=== PATIENT | female | born 1985 | race Caucasian/White ===

== ENCOUNTER 2021-07-17 11:12 | Emergency (ER) | payer OTHER ==
[~2021-07-17] VITALS: Ht 160 cm; Wt 63.5 kg
== END 2021-07-17 12:51 | disposition home or self-care (01) ==
LOC: ER 11:12
DX: U07.1 COVID-19 (principal)

== ENCOUNTER 2024-04-10 15:28 | Emergency (ER) | payer OTHER ==
[~2024-04-10] VITALS: Ht 160 cm; Wt 68.9 kg
[2024-04-10] MEDS ORDERED: ONDANSETRON HCL 2 MG/ML VIAL IV ONE (18:00)
[2024-04-10] MEDS ORDERED: 0.9 % SODIUM CHLORIDE 500 ML IV ONE (18:00)
[2024-04-10 18:36] LABS: HEMATOCRIT 35.7 % (36.0-45.00); HEMOGLOBIN 11.9 g/dL (12.0-15.00); MEAN CELL VOLUME 81.8 fL (80.00-100.00); MEAN CORPUSCULAR HEMOGLOBIN 27.3 pg (27.00-32.0); MEAN CORPUSCULAR HGB CONC 33.4 g/dl (32.0-36.0); PLATELET COUNT 233 K/uL (150-450); RED BLOOD COUNT 4.37 M/uL (4.00-6.00)
[2024-04-10] MEDS ORDERED: KETOROLAC TROMETHAMINE 30 MG VIAL IV ONE (19:15)
== END 2024-04-10 20:11 | disposition home or self-care (01) ==
LOC: ER 15:29
PROVIDERS: Preventive Medicine Public Health & General Preventive Medicine
DX: J11.1 Influenza due to unidentified influenza virus with other respiratory manifestations (principal); B34.9 Viral infection, unspecified; R53.81 Other malaise; Z91.018 Allergy to other foods